=== PATIENT | male | born 1985 | race Two or more races ===

== ENCOUNTER 2023-04-07 20:36 | Emergency (ER) | payer OTHER ==
[~2023-04-07] VITALS: Ht 193 cm; Wt 113.4 kg
[2023-04-07] MEDS ORDERED: AZITHROMYCIN250 MG PO (21:30)
[2023-04-07] MEDS ORDERED: THERAFLU COLD1 EAC4 PO (21:30)
[2023-04-07] MEDS: OXYMETAZOLINE HCL 0.05% NAS 1 SPRAY BTL ONE (21:52)
[2023-04-07 21:59] VITALS: BP 129/79; PULSE 74; RESP 17; TEMP 98; O2SAT 99
== END 2023-04-07 22:30 | disposition home or self-care (01) ==
LOC: FSED 20:49
DX: R50.9 Fever, unspecified (principal); J40 Bronchitis, not specified as acute or chronic; J06.9 Acute upper respiratory infection, unspecified; R05.9 Cough, unspecified
CPT/HCPCS: 71046; 99283